=== PATIENT | male | born 1970 | race Caucasian/White ===

== ENCOUNTER 2020-11-22 10:12 | Inpatient (IN) ==
[2020-11-22] MEDS ORDERED: ONDANSETRON INJ 2 MG/ML 2 ML VIAL IV STA (10:31)
[2020-11-22] MEDS ORDERED: SODIUM CHLORIDE 0.9% 1000ML 1,000 ML IV ONE (10:31)
[2020-11-22] MEDS ORDERED: AMPICILLIN/SULBACTAM SOD 3,000 MG in 0.9 % SODIUM CHLORIDE 100 ML IV STA (10:31)
[2020-11-22] MEDS ORDERED: ALBUTEROL HFA 8 GM INHALER INH ONE (10:31)
[2020-11-22] MEDS ORDERED: KETOROLAC TROMETHAMINE 15 MG/ML VIAL IV STA (10:35)
[2020-11-22] MEDS ORDERED: ACETAMINOPHEN 1000 MG/100 ML IV IV STA (10:35)
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
[2020-11-22 10:54] LABS: Basophils # (auto) 0.02 K/uL (0-0.2); Basophils % (auto) 0.4 %; Eosinophils # (auto) 0.16 K/uL (0-0.5); Eosinophils % (auto) 3.4 %; Hematocrit (blood only) 34.3 % (42-52); Hemoglobin 10.9 g/dL (14.0-18.0); Immature Granulocytes # (auto) 0.01 K/uL (0.00-0.02); Immature Granulocytes % (auto) 0.2 %; Lymphocytes # (auto) 1.06 K/uL (1.2-3.4); Lymphocytes % (auto) 22.7 %; Mean Corpuscular Hemoglobin 31.8 pg (25-34); Mean Corpuscular Hgb Conc 31.8 g/dL (32-36); Mean Platelet Volume 9.9 fL (7.4-10.4); Monocytes # (auto) 0.26 K/uL (0.11-0.59); Monocytes % (auto) 5.6 %; Neutrophils # (auto) 3.15 K/uL (1.4-6.5); Neutrophils % (auto) 67.7 %; Platelet Count 269 K/uL (130-400); RDW Coefficient of Variation 13.2 % (11.5-14.5); RDW Standard Deviation 48.4 fL (36.4-46.3); Red Blood Count 3.43 M/uL (4.7-6.1); White Blood Count 4.66 K/uL (4.8-10.8)
--- NOTE | 2020-11-22 10:58 | XRay Report ---
SINGLE VIEW CHEST CLINICAL HISTORY: Wheezing and dyspnea. FINDINGS: An AP, portable, upright chest radiograph is obtained. No prior studies are available for c omparison at the time of dictation. The cardiomediastinal silhouette is unremarkable. Interstitial o pacities are present both lung bases. No large pleural effusion or pneumothorax is seen. The bony tho rax is grossly intact. IMPRESSION: Interstitial opacities at both lung bases could represent atelectasis versus a mild infec tious/inflammatory pneumonitis. Clinical correlation will be required. ACT 112: Negative or not required by law. Electronically signed by: Ramon Alatorre M.D. 11/22/2020 10:57 AM
--- NOTE | 2020-11-22 10:59 | Electrocardiogram Report ---
Test Reason : Blood Pressure : / mmHG Vent. Rate : 072 BPM Atrial Rate : 072 BPM P-R Int : 162 ms QRS Dur : 090 ms QT Int : 406 ms P-R-T Axes : 076 033 049 degrees QTc Int : 444 ms Normal sinus rhythm Normal ECG No previous ECGs available Confirmed by Jeremy Maurer ([id number]) on 11/22/2020 10:59:26 AM Referred By: Confirmed By:Jeremy Maurer
[2020-11-22 11:17] LABS: Albumin Level 3.3 gm/dl (3.4-5.0); BUN Creatinine Ratio 16.2 (10-20); Calcium 8.5 mg/dl (8.5-10.1); Est GFR (African American) 106.2; Est GFR (Non-African American) 91.7
[2020-11-22 11:20] LABS: Albumin Globulin Ratio 0.9 (0.9-2); Bilirubin,Total 0.2 mg/dl (0.2-1); Globulin 3.7 gm/dl (2.5-4.0)
[2020-11-22] MEDS ORDERED: ALBUT/IPRATROP 3MG/0.5MG NEB 3 ML VIAL NEB STA (11:48)
[2020-11-22] MEDS ORDERED: OPTIRAY 320 125ml IV ONE (12:34)
--- NOTE | 2020-11-22 12:46 | Ultrasound Report ---
ULTRASOUND LEFT LOWER EXTREMITY VENOUS CLINICAL HISTORY: Right leg pain and swelling. COMPARISON STUDY: No priors. TECHNIQUE: Real-time, grayscale, and color Doppler sonography of the deep veins of the left lower ext remity was performed from the inguinal crease to the calf. Compression and augmentation were utilized . FINDINGS: There is no sonographic evidence of deep venous thrombosis identified in the left lower ext remity. The common femoral, superficial femoral, and popliteal veins are patent and normally compress ible. The greater saphenous vein and the profunda femoris vein at the junction with the common femora l vein are clear. The visualized calf veins are patent. IMPRESSION: There is no sonographic evidence of deep venous thrombosis identified in the left lower e xtremity. ACT 112: Negative or not required by law. Electronically signed by: Ramon Alatorre M.D. 11/22/2020 12:45 PM
--- NOTE | 2020-11-22 12:55 | CT Scan Report ---
CT angio chest PE protocol CT DOSE: 609.79 mGy.cm HISTORY: 50 years-old Male with PE. Acute shortness of breath with wheezing and bibasilar opacities TECHNIQUE: Multiple CTA images of the chest were obtained after the intravenous administration of 118 ml Optiray 320. Coronal and sagittal MIPS were obtained from the axial data set and were submitted for review. All measurements were obtained according to NASCET criteria. A dose lowering technique w as utilized adhering to the principles of ALARA. COMPARISON: Chest radiograph of same day FINDINGS: CTA: The heart is normal in size without pericardial effusion. Mild to moderate coronary artery calcificat ions. There is no thoracic aortic aneurysm or dissection. The pulmonary artery is opacified to level the lobar branches. The segmental and subsegmental branches are not well visualized at the level of t he lung bases secondary to respiratory motion artifact and contrast bolus timing. No filling defects identified. CT CHEST: Unremarkable thyroid. No adenopathy. Trace left pleural effusion. There is no pneumothorax or overt p ulmonary edema. Dependent bibasilar patchy consolidative opacities. Mild subpleural groundglass densi ties of the right lung apex. There are no suspicious pulmonary nodules or masses. The central airways are patent. Mild nonspecific distal esophageal wall thickening. The imaged upper abdomen is unremarkable otherwis e. Unremarkable soft tissues. There is no acute fracture. IMPRESSION: 1. Limited exam as above. No evidence of pulmonary thromboembolic disease. 2. Dependent bibasilar consolidative opacities with mild subpleural groundglass densities of the righ t lung apex are suggestive of an infectious or inflammatory pneumonitis. 3. Mild to moderate coronary artery calcifications. ACT 112: Negative or not required by law. The above report was generated using voice recognition software. It may contain grammatical, syntax o r spelling errors. Electronically signed by: Farshad Schwarz M.D. 11/22/2020 12:54 PM
[2020-11-22 13:10] LABS: Appearance Urine Clear (Clear); Bilirubin Urine Negative (Negative); Blood Urine Negative (Negative); Color Urine Yellow; Glucose Urine UA Negative (Negative); Ketones Urine Negative (Negative); Leukocyte Esterase Urine Negative (Negative); Nitrite Urine Negative (Negative); Protein Urine Negative (Negative); Specific Gravity Urine 1.017 (1.000-1.030); Urobilinogen Urine Negative (Negative); pH Urine 6.5 (4.5-7.5)
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
[2020-11-22] MEDS ORDERED: VANCOMYCIN HCL 2,500 MG in SODIUM CHLORIDE 0.9% 500 ML IV ONE (13:53)
[2020-11-22] MEDS ORDERED: SODIUM CHLORIDE 0.9% 1000ML 500 ML IV ONE (13:53)
[2020-11-22] MEDS ORDERED: HYDROmorphone INJ 0.5 MG/0.5 ML SYR IV PRN (13:53)
[2020-11-22] MEDS ORDERED: VANCOMYCIN CONSULT ACTIVE PRN (13:53)
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
[2020-11-22] MEDS ORDERED: KETAMINE HCL INJ 50 MG/ML 10 ML VIAL IV STA (15:48)
[2020-11-22 17:39] LABS: Adenovirus PCR Not Detected (NotDetected); Bordetella parapertussis PCR Not Detected (NotDetected); Bordetella pertussis PCR Not Detected (NotDetected); Chlamydia pneumoniae PCR Not Detected (NotDetected); Coronavirus 229E PCR Not Detected (NotDetected); Coronavirus CoV-2 (COVID19)PCR Not Detected (NotDetected); Coronavirus HKU1 PCR Not Detected (NotDetected); Coronavirus NL63 PCR Not Detected (NotDetected); Coronavirus OC43PCR Not Detected (NotDetected); Human Metapneumovirus PCR Not Detected (NotDetected); Influenza A PCR Not Detected (NotDetected); Influenza B PCR Not Detected (NotDetected); Mycoplasma pneumoniae PCR Not Detected (NotDetected); Parainfluenza Virus 1 PCR Not Detected (NotDetected); Parainfluenza Virus 2 PCR Not Detected (NotDetected); Parainfluenza Virus 3 PCR Not Detected (NotDetected); Parainfluenza Virus 4 PCR Not Detected (NotDetected); Respiratory Syncytial VirusPCR Not Detected (NotDetected); Rhinovirus/Enterovirus PCR Not Detected (NotDetected)
[2020-11-22] MEDS ORDERED: PIPERACILL/TAZOBAC CONSULT ACTIVE PRN (18:07)
[2020-11-22] MEDS ORDERED: ACETAMINOPHEN 500 MG TAB PO PRN (18:07)
[2020-11-22] MEDS ORDERED: oxyCODONE HCL IR 5 MG TAB (IMMEDIATE RELEASE) PO PRN (18:07)
[2020-11-22] MEDS ORDERED: PIPERACILLIN/TAZOBACTAM 4.5 GM in DEXTROSE 5% 100 ML IV ONE (18:30)
[2020-11-22] MEDS: oxyCODONE HCL IR 5 MG TAB (IMMEDIATE RELEASE) PO PRN (18:30)
[2020-11-22] MEDS ORDERED: DOXYCYCLINE HYCLATE 200 MG in DEXTROSE 5% 100 ML IV ONE (18:45)
[2020-11-22] MEDS ORDERED: DOXYCYCLINE HYCLATE 200 MG in DEXTROSE 5% 250 ML IV ONE (18:45)
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
[2020-11-22] MEDS ORDERED: SIMVASTATIN 40 MG TAB PO SCH (21:00)
[2020-11-22] MEDS ORDERED: KETOROLAC 30 MG/ML VIAL IV ONE (21:23)
[2020-11-22] MEDS: BUPRENORPHINE/NALOXONE 2/0.5MG 1 TAB PO SCH (21:32)
[2020-11-22] MEDS: cilostazoL 100 MG TAB PO SCH (21:32)
[2020-11-22] MEDS: MECLIZINE HCL 25 MG TAB PO SCH (21:33)
[2020-11-22] MEDS: AMITRIPTYLINE HCL 25 MG TAB PO SCH (21:33)
[2020-11-22] MEDS: GABAPENTIN 300 MG CAP PO SCH (21:33)
[2020-11-22] MEDS: traZODone HCL 100 MG TAB PO SCH (21:34)
[2020-11-22] MEDS: GABAPENTIN 600 MG TAB PO SCH (21:34)
[2020-11-22] MEDS: VANCOMYCIN HCL 1,250 MG in SODIUM CHLORIDE 0.9% 250 ML IV SCH (21:40)
[2020-11-23] MEDS: oxyCODONE HCL IR 5 MG TAB (IMMEDIATE RELEASE) PO PRN ×4 (00:30→19:37)
[2020-11-23] MEDS: PIPERACILLIN/TAZOBACTAM 3.375 GM in DEXTROSE 5% 100 ML IV SCH ×2 (00:31→08:24)
[2020-11-23] MEDS ORDERED: KETOROLAC 30 MG/ML VIAL IV ONE (02:31)
[2020-11-23] MEDS ORDERED: MoRPHine SULFATE 2 MG/ML CARP IV STA (03:40)
[2020-11-23] MEDS: VANCOMYCIN HCL 1,250 MG in SODIUM CHLORIDE 0.9% 250 ML IV SCH (05:46)
[2020-11-23 06:20] LABS: Basophils # (auto) 0.01 K/uL (0-0.2); Basophils % (auto) 0.2 %; Eosinophils # (auto) 0.13 K/uL (0-0.5); Hematocrit (blood only) 29.6 % (42-52); Hemoglobin 9.3 g/dL (14.0-18.0); Lymphocytes # (auto) 1.45 K/uL (1.2-3.4); Lymphocytes % (auto) 33.2 %; Mean Corpuscular Hemoglobin 31.8 pg (25-34); Mean Corpuscular Hgb Conc 31.4 g/dL (32-36); Mean Corpuscular Volume 101.4 fL (80-100); Mean Platelet Volume 9.4 fL (7.4-10.4); Monocytes # (auto) 0.24 K/uL (0.11-0.59); Monocytes % (auto) 5.5 %; Neutrophils # (auto) 2.54 K/uL (1.4-6.5); Neutrophils % (auto) 58.1 %; Platelet Count 198 K/uL (130-400); RDW Coefficient of Variation 13.3 % (11.5-14.5); RDW Standard Deviation 49.7 fL (36.4-46.3); Red Blood Count 2.92 M/uL (4.7-6.1); White Blood Count 4.37 K/uL (4.8-10.8)
[2020-11-23 06:56] LABS: Alanine Aminotransferase 18 U/L (12-78); Albumin Level 2.9 gm/dl (3.4-5.0); Aspartate Aminotransferase 11 U/L (15-37); BUN Creatinine Ratio 17.3 (10-20); Blood Urea Nitrogen 17 mg/dl (7-18); Carbon Dioxide 29 mmol/L (21-32); Chloride 111 mmol/L (98-107); Creatinine Clr Calc Pharmacy 106.6 ml/min; Est GFR (African American) 101.1; Est GFR (Non-African American) 87.2; Glucose 91 mg/dl (70-99); Lipase 96 U/L (73-393); Magnesium 2.4 mg/dl (1.8-2.4); Potassium 4.5 mmol/L (3.5-5.1); Sodium 142 mmol/L (136-145)
[2020-11-23 07:00] LABS: Alkaline Phosphatase 67 U/L (45-117); Bilirubin Direct < 0.1 mg/dl (0-0.2); Bilirubin,Total 0.1 mg/dl (0.2-1); Phosphorus 4.8 mg/dl (2.5-4.9); Total Protein 5.9 gm/dl (6.4-8.2)
[2020-11-23] MEDS ORDERED: DOXYCYCLINE HYCLATE 100 MG CAP PO SCH (09:00)
[2020-11-23] MEDS: NICOTINE 14 MG/24 HR PATCH TD SCH (10:33)
[2020-11-23] MEDS: ASPIRIN 81 MG ECTAB PO SCH (10:34)
[2020-11-23] MEDS: GABAPENTIN 300 MG CAP PO SCH ×3 (10:35→20:35)
[2020-11-23] MEDS: THIAMINE HCL 100 MG TAB PO SCH (10:35)
[2020-11-23] MEDS: MULTIVITAMIN TAB PO SCH (10:35)
[2020-11-23] MEDS: PANTOprazole 40 MG TAB PO SCH (10:35)
[2020-11-23] MEDS: CLOPIDOGREL BISULFATE 75 MG TAB PO SCH (10:36)
[2020-11-23] MEDS: CYANOCOBALAMIN 500 MCG TABLET (VITAMIN B-12) PO SCH (10:36)
[2020-11-23] MEDS: MECLIZINE HCL 25 MG TAB PO SCH ×3 (10:36→20:36)
[2020-11-23] MEDS: FLUoxetine HCL 20 MG CAP PO SCH (10:37)
[2020-11-23] MEDS: FOLIC ACID 1 MG TAB PO SCH (10:37)
[2020-11-23] MEDS: GABAPENTIN 600 MG TAB PO SCH ×3 (10:37→20:35)
[2020-11-23] MEDS: cilostazoL 100 MG TAB PO SCH ×2 (10:39→20:36)
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
[2020-11-23] MEDS ORDERED: PANTOprazole 40 MG TAB PO SCH (11:00)
[2020-11-23] MEDS: CHOLECALCIFEROL 1,000 UNITS 25 MCG TAB PO SCH (11:12)
[2020-11-23] MEDS: BUPRENORPHINE/NALOXONE 2/0.5MG 1 TAB PO SCH ×3 (11:13→21:28)
[2020-11-23] MEDS ORDERED: diphenhydrAMINE Capsule 25 MG CAP PO PRN (13:20)
[2020-11-23] MEDS ORDERED: ACETAMINOPHEN 325 MG TAB PO PRN (13:20)
[2020-11-23] MEDS ORDERED: GABAPENTIN 300 MG CAP PO SCH (14:00)
[2020-11-23] MEDS ORDERED: Heparin IV Standard *NO* Bolus IV SCH (14:08)
[2020-11-23] MEDS: HYDROmorphone INJ 0.5 MG/0.5 ML SYR IV PRN ×3 (14:25→22:31)
[2020-11-23 15:08] LABS: Partial Thromboplastin Time 29.2 Seconds (21.0-31.0); Prothrombin Time 10.2 Seconds (9.0-12.0)
--- NOTE | 2020-11-23 15:17 | Billing Data ---
Date of Service November 23, 2020 Coding Level of Care Code 43607 Subseq Hosp Care Lvl 3
[2020-11-23] MEDS: HEPARIN SODIUM/DEXTROSE 25,000 UNITS/500 ML BAG IV SCH (15:34)
[2020-11-23] MEDS: UMECLIDINIUM/VILANTEROL 62.5/25MCG 7 PUFFS/INHALER INH SCH (15:57)
[2020-11-23] MEDS ORDERED: RIVAROXABAN 20 MG TAB PO SCH (17:00)
[2020-11-23] MEDS: AMOXICILLIN/CLAVULANATE 875 MG TAB PO SCH (17:48)
[2020-11-23] MEDS: traZODone HCL 100 MG TAB PO SCH (20:35)
[2020-11-23] MEDS: AMITRIPTYLINE HCL 25 MG TAB PO SCH (20:36)
[2020-11-23 21:50] LABS: Partial Thromboplastin Ratio 1.5; Partial Thromboplastin Time 41.6 Seconds (21.0-31.0)
[2020-11-24] MEDS: oxyCODONE HCL IR 5 MG TAB (IMMEDIATE RELEASE) PO PRN ×2 (01:41→07:50)
[2020-11-24] MEDS: HYDROmorphone INJ 0.5 MG/0.5 ML SYR IV PRN ×2 (04:02→07:59)
[2020-11-24 04:17] LABS: Basophils # (auto) 0.02 K/uL (0-0.2); Basophils % (auto) 0.4 %; Eosinophils # (auto) 0.18 K/uL (0-0.5); Eosinophils % (auto) 3.5 %; Hematocrit (blood only) 31.8 % (42-52); Hemoglobin 10.1 g/dL (14.0-18.0); Immature Granulocytes # (auto) 0.02 K/uL (0.00-0.02); Immature Granulocytes % (auto) 0.4 %; Lymphocytes # (auto) 2.05 K/uL (1.2-3.4); Mean Corpuscular Hemoglobin 31.8 pg (25-34); Mean Corpuscular Hgb Conc 31.8 g/dL (32-36); Mean Platelet Volume 9.9 fL (7.4-10.4); Monocytes # (auto) 0.34 K/uL (0.11-0.59); Monocytes % (auto) 6.6 %; Neutrophils # (auto) 2.52 K/uL (1.4-6.5); Neutrophils % (auto) 49.1 %; Platelet Count 227 K/uL (130-400); RDW Coefficient of Variation 12.8 % (11.5-14.5); Red Blood Count 3.18 M/uL (4.7-6.1); White Blood Count 5.13 K/uL (4.8-10.8)
[2020-11-24 04:34] LABS: BUN Creatinine Ratio 17.1 (10-20); Calcium 8.5 mg/dl (8.5-10.1); Creatinine Clr Calc Pharmacy 125.7 ml/min; Est GFR (African American) 116.7; Est GFR (Non-African American) 100.7; Magnesium 2.3 mg/dl (1.8-2.4); Potassium 4.6 mmol/L (3.5-5.1)
[2020-11-24 04:36] LABS: Phosphorus 3.1 mg/dl (2.5-4.9)
[2020-11-24 04:37] LABS: Partial Thromboplastin Ratio 1.9
[2020-11-24 04:57] LABS: Partial Thromboplastin Time 52.9 Seconds (21.0-31.0)
[2020-11-24] MEDS ORDERED: VANCOMYCIN TROUGH ONE (05:30)
[2020-11-24] MEDS: HEPARIN SODIUM/DEXTROSE 25,000 UNITS/500 ML BAG IV SCH (06:10)
[2020-11-24] MEDS: AMOXICILLIN/CLAVULANATE 875 MG TAB PO SCH (07:52)
[2020-11-24] MEDS: UMECLIDINIUM/VILANTEROL 62.5/25MCG 7 PUFFS/INHALER INH SCH (08:56)
[2020-11-24] MEDS: ASPIRIN 81 MG ECTAB PO SCH (08:57)
[2020-11-24] MEDS: MECLIZINE HCL 25 MG TAB PO SCH (08:57)
[2020-11-24] MEDS: FOLIC ACID 1 MG TAB PO SCH (08:58)
[2020-11-24] MEDS: MULTIVITAMIN TAB PO SCH (08:58)
[2020-11-24] MEDS: GABAPENTIN 300 MG CAP PO SCH (08:59)
[2020-11-24] MEDS: GABAPENTIN 600 MG TAB PO SCH (08:59)
[2020-11-24] MEDS: CLOPIDOGREL BISULFATE 75 MG TAB PO SCH (09:00)
[2020-11-24] MEDS ORDERED: ATORVASTATIN 40 MG TAB PO SCH (09:00)
[2020-11-24] MEDS: NICOTINE 14 MG/24 HR PATCH TD SCH (09:00)
[2020-11-24] MEDS: cilostazoL 100 MG TAB PO SCH (09:01)
[2020-11-24] MEDS: PANTOprazole 40 MG TAB PO SCH (09:01)
[2020-11-24] MEDS: FLUoxetine HCL 20 MG CAP PO SCH (09:02)
[2020-11-24] MEDS: THIAMINE HCL 100 MG TAB PO SCH (09:03)
[2020-11-24] MEDS: CHOLECALCIFEROL 1,000 UNITS 25 MCG TAB PO SCH (09:04)
[2020-11-24] MEDS: BUPRENORPHINE/NALOXONE 2/0.5MG 1 TAB PO SCH (09:31)
[2020-11-24] MEDS: CYANOCOBALAMIN 500 MCG TABLET (VITAMIN B-12) PO SCH (10:19)
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
--- NOTE | 2020-11-24 20:49 | Billing Data ---
Date of Service November 24, 2020 Coding Level of Care Code D/C Day Management >30 mins
== END 2020-11-24 10:48 | disposition short-term general hospital (02) | DRG 314 ==
LOC: ED 10:12 → 3N 14:38 → SUATTDRO 14:38 → 3N 17:35